=== PATIENT | female | born 1955 | race Caucasian/White ===

== ENCOUNTER 2016-04-18 06:17 | Emergency (ER) | payer BC ==
[2016-04-18] MEDS ORDERED: IPRATROPIUM/ALBUTEROL 3 ML VIAL NEB ONE ×2 (06:23→06:30)
[2016-04-18] MEDS ORDERED: NITROGLYCERIN 0.4 MG 25 EA TAB SL ONE ×2 (06:31→06:35)
--- NOTE | 2016-04-18 06:44 | ED.PDOC ---
History of Present Illness - General Source: patient, RN notes reviewed, Vital Signs reviewed Exam Limitations: no limitations - History of Present Illness Initial Comments: C.H. 60 y/o female with history of copd woke from her sleep early this am with sob and later on sharp chest pains then was brought by family here. Timing/Duration: 1-3 hours Severity: moderate Improving Factors: nothing Worsening Factors: other - hx of copd Associated Symptoms: chest pain <Jayden Schwartz - Last Filed: 04/18/16 06:54> <Omayra Steinberg - Last Filed: 04/18/16 09:34> - General Chief Complaint: Respiratory Problem Stated Complaint: short of breath Time Seen by Provider: 04/18/16 06:42 - History of Present Illness Allergies/Adverse Reactions: Allergies NO KNOWN ALLERGY Allergy (Verified 01/08/13 18:32) Home Medications: Ambulatory Orders Tiotropium [place] Monohydrate [Spiriva Handihaler] 18 mcg IN DAILY #0 Budesonide-Formoterol Fumarate [Symbicort] 1 aer IN BID 12/31/15 Azithromycin Tab [Zithromax] 250 mg PO QDPC #4 tab 04/18/16 Methylprednisolone [Medrol Dose Jose Alberto] 4 mg PO DAILY #1 pack 04/18/16 Ondansetron [Zofran Odt] 4 mg PO Q4HR PRN #20 tab 04/18/16 Review of Systems - Review of Systems Constitutional: States: fever EENTM: States: no symptoms reported Respiratory: States: short of breath Cardiology: States: see HPI, chest pain Gastrointestinal/Abdominal: States: no symptoms reported Genitourinary: States: no symptoms reported Musculoskeletal: States: no symptoms reported Skin: States: no symptoms reported Neurological: States: no symptoms reported Endocrine: States: no symptoms reported Hematologic/Lymphatic: States: no symptoms reported <Jayden Schwartz - Last Filed: 04/18/16 06:54> Past Medical History (General) - Patient Medical History Hx Seizures: No Hx Stroke: No Hx Dementia: No Hx Asthma: No Hx of COPD: Yes Hx Cardiac Disorders: No Hx Congestive Heart Failure: No Hx Pacemaker: No Hx Hypertension: No Hx Thyroid Disease: No Hx Diabetes: No Hx Gastroesophageal Reflux: No Hx Renal Disease: No Hx Cancer: No Hx of HIV: No Hx Hepatitis C: No Hx MRSA: No Surgical History: cholecystectomy - hysterectomy, other - Vaccination History Hx Tetanus, Diphtheria Vaccination: No Hx Influenza Vaccination: No Hx Pneumococcal Vaccination: Yes - Social History Hx Tobacco Use: Yes Hx Alcohol Use: No Hx Substance Use: No Hx Substance Use Treatment: No Hx Depression: No Hx Physical Abuse: No Hx Emotional Abuse: No Hx Suspected Abuse: No - Activities of Daily Living Patient Lives Alone: No - family Grooming Ability: Independent Eating (Feeding) Ability: Independent Toileting Ability: Independent <Jayden Schwartz R - Last Filed: 04/18/16 06:54> Family Medical History - Family History Mother Family History: Unknown Living Status: Still Living Hx Family Hypertension: Yes - mom Hx Family Diabetes: Yes - mom <Jayden Schwartz R - Last Filed: 04/18/16 06:54> Physical Exam - Physical Exam General Appearance: Alert, Anxious, No apparent distress Ears, Nose, Throat: hearing grossly normal, normal ENT inspection, normal pharynx Neck: non-tender, full range of motion, supple Respiratory: chest non-tender, decreased breath sounds, rales Cardiovascular/Chest: normal peripheral pulses, no gallop, no murmur, tachycardia Peripheral Pulses: radial,right: 2+, radial,left: 2+ Gastrointestinal/Abdominal: normal bowel sounds, non tender, soft, no organomegaly Back Exam: normal inspection, no CVA tenderness, no vertebral tenderness Extremity: normal range of motion, non-tender, normal inspection Neurologic: no motor/sensory deficits, alert, normal mood/affect, oriented x 3 Skin Exam: normal color, warm/dry, cyanosis Lymphatic: no adenopathy <Jayden Schwartz R - Last Filed: 04/18/16 06:54> Progress - Progress Progress: 04/18/16 07:10 Patient still appears SOB but her O2 saturation is good. Chest X-ray shows pneumonia so will start Zithromax 500mg IV and give Solumedrol 125mg IV. 04/18/16 08:08 Patient is feeling and breathing better except for some nausea. Will give Zofran IV. 04/18/16 09:30 Patient continues to do well. She is on O2 at home. Will d/c home with antibiotic, steroids and zofran. She is agreeable with the plan. - Results/Orders Results/Orders: Laboratory Tests 04/18/16 04/18/16 04/18/16 06:30 06:44 06:46 WBC 10.4 RBC 4.96 Hgb 13.9 Hct 42.0 MCV 84.7 MCH 28.0 MCHC 33.0 RDW 13.6 Plt Count 126 L MPV 8.0 Absolute Neuts (auto) 8.10 H Absolute Lymphs (auto) 1.60 Absolute Monos (auto) 0.50 Absolute Eos (auto) 0.10 Absolute Basos (auto) 0.10 Neutrophils % 77.5 Lymphocytes % 15.8 L Monocytes % 4.8 Eosinophils % 1.4 Basophils % 0.5 D-Dimer, Quantitative < 230 Sodium 135 Potassium 4.3 Chloride 103 Carbon Dioxide 22 Anion Gap 14.3 BUN 15 Creatinine 0.73 BUN/Creatinine Ratio 20.5 H Random Glucose 129 H Serum Osmolality 272.6 L Calcium 8.8 Total Bilirubin 0.5 AST 28 ALT 20 Alkaline Phosphatase 68 Creatine Kinase 107 CK-MB (CK-2) 2.8 CK-MB (CK-2) % Not Reportable Troponin I < 0.02 B-Natriuretic Peptide 15.6 Serum Total Protein 7.2 Albumin 4.0 Globulin 3.2 Albumin/Globulin Ratio 1.3 - EKG/XRAY/CT XRAY: chest - Multifocal pneumonia per Radiology <Omayra Steinberg - Last Filed: 04/18/16 09:34> Departure <Jayden Schwartz - Last Filed: 04/18/16 06:54> - Departure Time of Disposition: 09:31 Diet: resume usual diet Activity: increase activity as tolerated <Omayra Steinberg - Last Filed: 04/18/16 09:34> - Departure Clinical Impression: Pneumonia, COPD exacerbation Disposition: Discharge to Home or Self Care Condition: Good Departure Forms: ED Discharge - Pt. Copy, Patient Portal Self Enrollment Instructions: DI for Pneumonia -- Adult, DI for Chronic Obstructive Pulmonary Disease Prescriptions: Ondansetron [Zofran Odt] 4 mg PO Q4HR PRN #20 tab PRN Reason: Nausea/Vomiting Methylprednisolone [Medrol Dose Jose Alberto] 4 mg PO DAILY #1 pack Azithromycin Tab [Zithromax] 250 mg PO QDPC #4 tab Home Medications: Ambulatory Orders Tiotropium [place] Monohydrate [Spiriva Handihaler] 18 mcg IN DAILY #0 11/05/ 13 Budesonide-Formoterol Fumarate [Symbicort] 1 aer IN BID 12/31/15 Azithromycin Tab [Zithromax] 250 mg PO QDPC #4 tab 04/18/16 Methylprednisolone [Medrol Dose Jose Alberto] 4 mg PO DAILY #1 pack 04/18/16 Ondansetron [Zofran Odt] 4 mg PO Q4HR PRN #20 tab 04/18/16 Additional Instructions: Continues home neb treatments as needed. Use home O2 as needed
--- NOTE | 2016-04-18 06:52 | RAD ---
EXAM: Single view chest. INDICATION: Chest pain. COMPARISON: Chest x-ray: 10/05/2014. FINDINGS: Cardiac silhouette: Unremarkable. Shawna: Unremarkable. Lobar consolidation: There are patchy airspace opacities within the right lung.Pleural effusion: None.Pneumothorax: None.Other: None. Bones: Unremarkable. Other: None. IMPRESSION: Multifocal pneumonia Electronically signed by: John Rosenthal MD 04/18/2016 6:51 AM ASIAN STUDIES PROFESSOR
[2016-04-18] MEDS ORDERED: AZITHROMYCIN IV 500 MG in SODIUM CHLORIDE 0.9% 250ML 250 ML IVPB ONE (07:05)
[2016-04-18] MEDS ORDERED: methylPREDNISolone SODIUM SUC 125 MG/2 ML VIAL IV ONE (07:09)
[2016-04-18] MEDS ORDERED: SODIUM CHLORIDE 0.9% 250ML 250 ML ONE (07:16)
[2016-04-18] MEDS ORDERED: AZITHROMYCIN IV 500 MG VIAL IVPB ONE (07:16)
[2016-04-18 08:03] VITALS: O2SAT 94
[2016-04-18] MEDS ORDERED: ONDANSETRON INJ 4 MG/2 ML VIAL IV ONE (08:08)
[2016-04-18] MEDS ORDERED: ACETAMINOPHEN 500 MG TAB PO ONE (09:30)
[2016-04-18 09:49] VITALS: BP 108/57; TEMP 99.8
--- NOTE | 2016-05-03 00:05 | RAD ---
EXAM: Single view chest. INDICATION: Chest pain. COMPARISON: Chest x-ray: 10/05/2014. FINDINGS: Cardiac silhouette: Unremarkable. Shawna: Unremarkable. Lobar consolidation: There are patchy airspace opacities within the right lung.Pleural effusion: None.Pneumothorax: None.Other: None. Bones: Unremarkable. Other: None. IMPRESSION: Multifocal pneumonia Electronically signed by: John Rosenthal MD 04/18/2016 6:51 AM MOBILITY MANAGER
== END 2016-04-18 09:49 | disposition home or self-care (01) ==
LOC: ER 06:17
DX: J18.9 Pneumonia, unspecified organism (principal); J44.1 Chronic obstructive pulmonary disease with (acute) exacerbation; Z87.891 Personal history of nicotine dependence; Z99.81 Dependence on supplemental oxygen

== ENCOUNTER → 2017-08-29 | Outpatient (CLI) | payer BC | LOC: GMAB 11:50 | PROVIDERS: ATTEND Family Medicine | DX: Z00.01 Encounter for general adult medical examination with abnormal findings (principal) ==

== ENCOUNTER → 2017-09-13 | Outpatient (CLI) | payer BC ==
--- NOTE | 2017-09-13 16:42 | US ---
EXAM DESCRIPTION: Carotid Duplex CLINICAL HISTORY: CAROTID BRUIT COMPARISON: None Available. TECHNIQUE: Carotid Doppler ultrasound FINDINGS: Right Submitted images show patchy calcified and noncalcified plaque in the common carotid artery with prominent noncalcified plaque in the right carotid bulb and proximal right ICA. Elevated flow velocity in the right ICA is consistent with a 60-79 % stenosis. Cross-sectional images with measurements suggest 41% area stenosis of the proximal right ICA. The following flow velocities were obtained: Common carotid artery peak systolic flow velocity measures 102 centimeters per second. Internal carotid artery peak systolic flow velocity measures 153 centimeters per second. This velocity is elevated consistent with 60-79 % stenosis. External carotid artery peak systolic flow velocity measures 77 centimeters per second. Flow in the right vertebral artery is antegrade. The right internal carotid to common carotid peak systolic flow velocity ratio equals 1.5 which is normal. Left Submitted images show calcified plaque at the left carotid bulb and proximal left internal and external carotid arteries. Transverse images with measurements suggest 32% area stenosis of the left carotid bulb with 30% area stenosis of the proximal left ICA. The following flow velocities were obtained: Common carotid artery peak systolic flow velocity measures 94 centimeters per second. Internal carotid artery peak systolic flow velocity measures 87 centimeters per second. External carotid artery peak systolic flow velocity measures 111 centimeters per second. Flow in the left vertebral artery is antegrade. The left internal carotid to common carotid peak systolic flow velocity ratio of 0.9 is normal. IMPRESSION: Elevated flow velocity in the proximal right ICA consistent with 60-79% stenosis. Electronically signed by: Waldemar Nicholas MD 09/13/2017 4:40 PM CDT
== END ==
LOC: US 13:27
PROVIDERS: ATTEND Family Medicine
DX: I65.23 Occlusion and stenosis of bilateral carotid arteries (principal)

== ENCOUNTER → 2017-09-22 | Outpatient (CLI) | payer OTHER ==
--- NOTE | 2017-09-22 16:24 | CT ---
Procedure: CT LUNG SCREENING Exam Date: 09/22/2017 Ordering Provider: Marcus Pope Clinical Indication: SCREENING Comparison: None Technique: Using a multislice scanner, sequential axial imaging was obtained in the thorax from the level of the thoracic inlet through the lung bases without IV contrast. A low dose protocol was utilized. 2D sagittal and coronal reconstructed images were obtained. This exam was performed according to our departmental dose optimization program which includes use of automated exposure control, adjustment of the mA and/or kV according to patient size and/or use of iterative reconstruction technique. FINDINGS: Lungs and large airways: There are emphysematous changes bilaterally. Central airways are patent. No focal lung consolidation. There are multiple bilateral lung nodules, largest in the left lung is in the left upper lobe and measures 4 mm. Largest in the right lung measures 4 mm in the right lower lobe Pleura: No pleural effusion. No pneumothorax. Mediastinum and radha: Evaluation of hilar lymphadenopathy is limited without IV contrast. No mediastinal lymphadenopathy by CT size criteria. Heart and great vessels: Heart is not enlarged. No pericardial effusion. No aortic aneurysm. Aortic and coronary artery calcifications. Chest wall, lower neck, axillae: Unremarkable Upper abdomen: Prior cholecystectomy. 2.2 cm lipid rich left adrenal adenoma. Bones: Nonacute IMPRESSION: 1. Multiple bilateral, less than 4 mm, lung nodules. Lung RADS category 2, continue annual screening with low-dose CT. 2. Lipid rich left adrenal adenoma. Electronically signed by: Дмитрий Mustafa MD 09/22/2017 4:23 PM CDT
== END ==
LOC: CT 11:00
PROVIDERS: ATTEND Family Medicine
DX: Z87.891 Personal history of nicotine dependence (principal)

== ENCOUNTER 2017-12-26 20:24 | Emergency (ER) | payer BC ==
[2017-12-26] MEDS ORDERED: SODIUM CHLORIDE 0.9% 1000ML 1,000 ML IVS ONE (21:49)
--- NOTE | 2017-12-26 21:50 | ED.PDOC ---
History of Present Illness - General Chief Complaint: GI Problem Stated Complaint: N/V/D Time Seen by Provider: 12/26/17 21:41 Source: patient Exam Limitations: no limitations - History of Present Illness Initial Comments: Darling Weinstein 62y/o female stated that she had watery diarrhea tonight then followed by nausea vomiting unable to eat since she she threw up right away. Timing/Duration: 4-6 hours Severity: moderate Improving Factors: nothing Worsening Factors: eating Associated Symptoms: other - see hpi Allergies/Adverse Reactions: Allergies NO KNOWN ALLERGY Allergy (Verified 01/08/13 18:32) Home Medications: Ambulatory Orders Budesonide-Formoterol Fumarate [Symbicort] 1 aer IN BID 12/31/15 Albuterol Inhaler [Ventolin Hfa Inhaler] 1 puff INH PRN 12/26/17 Review of Systems - Review of Systems Constitutional: States: no symptoms reported EENTM: States: no symptoms reported Respiratory: States: no symptoms reported Cardiology: States: no symptoms reported Gastrointestinal/Abdominal: States: see HPI Genitourinary: States: no symptoms reported Musculoskeletal: States: no symptoms reported Skin: States: no symptoms reported Neurological: States: no symptoms reported Past Medical History (General) - Patient Medical History Hx Seizures: No Hx Stroke: No Hx Dementia: No Hx Asthma: No Hx of COPD: Yes Hx Cardiac Disorders: No Hx Congestive Heart Failure: No Hx Pacemaker: No Hx Hypertension: No Hx Thyroid Disease: No Hx Diabetes: No Hx Gastroesophageal Reflux: No Hx Renal Disease: No Hx Cancer: No Hx of HIV: No Hx Hepatitis C: No Hx MRSA: No Surgical History: cholecystectomy, other - hysterectomy - Vaccination History Hx Tetanus, Diphtheria Vaccination: No Hx Influenza Vaccination: No Hx Pneumococcal Vaccination: Yes Immunizations Up to Date: No - Social History Hx Tobacco Use: Yes - vape Hx Alcohol Use: No Hx Substance Use: No Hx Substance Use Treatment: No Hx Depression: No Hx Physical Abuse: No Hx Emotional Abuse: No Hx Suspected Abuse: No - Female History Patient is a Female of Child Bearing Age (10 -59 yrs old): No - Triage Comment ED Triage Comment: N'V'D after arrival to ER Family Medical History - Family History Mother Family History: Unknown Living Status: Still Living Hx Family Hypertension: Yes - multiple family members Hx Family Diabetes: Yes - multiple family members Physical Exam - Physical Exam General Appearance: Alert, Comfortable, No apparent distress Eye Exam: bilateral normal Ears, Nose, Throat: hearing grossly normal, normal ENT inspection, normal pharynx Neck: non-tender, full range of motion, supple, normal inspection Respiratory: chest non-tender, decreased breath sounds Cardiovascular/Chest: normal peripheral pulses, regular rate, rhythm, no murmur Peripheral Pulses: radial,right: 2+, radial,left: 2+ Gastrointestinal/Abdominal: normal bowel sounds, non tender, soft, no organomegaly Back Exam: no CVA tenderness, no vertebral tenderness Extremity: non-tender, no pedal edema, no calf tenderness Neurologic: alert, oriented x 3 Skin Exam: normal color, warm/dry Lymphatic: no adenopathy Progress - Progress Progress: 12/26/17 22:22 Vital Signs - 8 hr 12/26/17 21:03 Temperature 99.3 F Pulse Rate [ 102 H Right] Respiratory 20 Rate Blood Pressure 126/73 [Left Arm] O2 Sat by Pulse 94 L Oximetry 12/27/17 00:17 no nausea /vomiting but occasional watery stool - Results/Orders Results/Orders: Laboratory Results - last 24 hr 12/26/17 12/26/17 12/26/17 22:01 22:01 22:01 WBC 6.9 RBC 5.13 Hgb 14.5 Hct 43.2 MCV 84.3 MCH 28.2 MCHC 33.5 RDW 13.8 Plt Count 155 MPV 7.6 Absolute Neuts (auto) 5.30 Absolute Lymphs (auto) 1.20 Absolute Monos (auto) 0.40 Absolute Eos (auto) 0.10 Absolute Basos (auto) 0.00 Neutrophils % 75.8 Lymphocytes % 17.3 L Monocytes % 5.1 Eosinophils % 1.4 Basophils % 0.4 Sodium 137 Potassium 3.6 Chloride 105 Carbon Dioxide 24 Anion Gap 11.6 L BUN 18 Creatinine 0.63 BUN/Creatinine Ratio 28.6 H Random Glucose 107 H Serum Osmolality 276.2 Lactic Acid 0.9 Calcium 9.4 Total Bilirubin 0.7 AST 16 ALT 21 Alkaline Phosphatase 60 Serum Total Protein 7.9 Albumin 4.3 Globulin 3.6 H Albumin/Globulin Ratio 1.2 Lipase 34 Urine Color Urine Appearance Urine pH Ur Specific [place] Urine Protein Urine Glucose (UA) Urine Ketones Urine Blood Urine Nitrite Urine Bilirubin Urine Urobilinogen Ur Leukocyte Esterase Urine RBC Urine WBC Ur Epithelial Cells Amorphous Sediment Urine Bacteria Urine Mucus 12/26/17 22:45 WBC RBC Hgb Hct MCV MCH MCHC RDW Plt Count MPV Absolute Neuts (auto) Absolute Lymphs (auto) Absolute Monos (auto) Absolute Eos (auto) Absolute Basos (auto) Neutrophils % Lymphocytes % Monocytes % Eosinophils % Basophils % Sodium Potassium Chloride Carbon Dioxide Anion Gap BUN Creatinine BUN/Creatinine Ratio Random Glucose Serum Osmolality Lactic Acid Calcium Total Bilirubin AST ALT Alkaline Phosphatase Serum Total Protein Albumin Globulin Albumin/Globulin Ratio Lipase Urine Color Yellow Urine Appearance Clear Urine pH 5.5 Ur Specific [place] 1.025 Urine Protein Negative Urine Glucose (UA) Negative Urine Ketones Trace Urine Blood Trace-intact H Urine Nitrite Negative Urine Bilirubin Negative Urine Urobilinogen 0.2 Ur Leukocyte Esterase Small H Urine RBC 3-5 H Urine WBC 3-5 H Ur Epithelial Cells 3-5 Amorphous Sediment 3+ Urine Bacteria 2+ H Urine Mucus Moderate clostridiium difficile-negative;Discuss all test result findings with patient - EKG/XRAY/CT XRAY: chest - no acute findings Departure - Departure Clinical Impression: Nausea vomiting and diarrhea Time of Disposition: 00:16 Disposition: Discharge to Home or Self Care Condition: Fair Departure Forms: ED Discharge - Pt. Copy, Patient Portal Self Enrollment Instructions: Viral Gastroenteritis, Adult (DC) Diet: bland diet, other - BRAT diet-banana,toast bread, crackers,dawna codi, ice tea;pedialyte Referrals: Ambrosio Ang MD [Primary Care Provider] - 1-2 Weeks Home Medications: Ambulatory Orders Budesonide-Formoterol Fumarate [Symbicort] 1 aer IN BID 12/31/15 Albuterol Inhaler [Ventolin Hfa Inhaler] 1 puff INH PRN 12/26/17 Additional Instructions: Return to ER as needed;Continue with home medications
[2017-12-26] MEDS ORDERED: ONDANSETRON INJ 4 MG/2 ML VIAL IV ONE (22:20)
--- NOTE | 2017-12-26 22:42 | RAD ---
EXAM DESCRIPTION: Chest,1 View CLINICAL HISTORY: 62 years Female, light headed COMPARISON: Chest x-ray April 18, 2016 FINDINGS: No consolidation. No pneumothorax. No significant pleural effusion. Cardiac silhouette appears normal in size. Aortic atherosclerosis is present. Osseous structures are unremarkable. IMPRESSION: No acute findings. Electronically signed by: José Miguel Leroy MD 12/26/2017 10:41 PM CDT
[2017-12-27] MEDS ORDERED: PROMETHAZINE TAB (ER DISP) 25 MG TAB PO ONE (00:22)
[2017-12-27 00:54] VITALS: BP 130/74; TEMP 98.2; O2SAT 95
== END 2017-12-27 00:54 | disposition home or self-care (01) ==
LOC: ER 20:24
DX: R11.2 Nausea with vomiting, unspecified (principal); R19.7 Diarrhea, unspecified; J44.9 Chronic obstructive pulmonary disease, unspecified; Z87.891 Personal history of nicotine dependence
CPT/HCPCS: 36415; 71045; 80053; 81001; 83605; 83690; 85025; 87324; 87449; J2405; J7030; Q0169

== ENCOUNTER → 2018-02-17 | Outpatient (CLI) | payer BC ==
--- NOTE | 2018-02-17 14:28 | CT ---
EXAM DESCRIPTION: Abdomen w/wo Contrast: Computed Tomography. CLINICAL HISTORY: DISORDER OF ADRENAL GLANDS. E27.9 COMPARISON: Low-dose CT scan for lung cancer screening 09/22/2017. TECHNIQUE: Spiral-axial scans at 5 x 5 mm intervals, from the diaphragms through the upper pelvis, before and after nonionic IV contrast. (Portal venous phase) No oral contrast. Coronal and sagittal 2.0 mm reconstructions, post IV contrast. No delayed scans were performed. No adverse reactions. DLP 937.43 mGy-cm. This exam was performed according to our departmental CT dose-optimization program which includes automated exposure control, adjustment of the mA and/or kV according to patient size and/or use of iterative reconstruction technique; to reduce radiation dose to as low as reasonably achievable (ALARA). FINDINGS: Lung bases and pleura: Bilateral emphysematous type blebs in a centrilobular pattern. Bilateral nodules solid and groundglass less than 4 mm diameter. Liver, stomach, adrenal glands, and spleen: Left adrenal gland mass measures 2.2 x 1.6 cm in the axial plane and 2.2 cm in the coronal plane. Homogeneous appearance noncontrast with well-defined capsule. No calcifications. Normal surrounding fatty density. Minimal heterogeneous enhancement. Precontrast density - right adrenal gland is unremarkable. -9.5HU. Postcontrast density +59HU. Stomach, spleen, and liver are unremarkable. . Pancreas/Gallbladder/Ducts: Surgical clips in the gallbladder fossa with no fluid. Normal caliber of the common bile duct. Pancreas is negative Kidneys and Ureters: Unremarkable. Mesentery: No free fluid or free air in the included peritoneal cavity. No fatty stranding or fascial thickening. Aorta: Extensive atherosclerotic occlusive disease in the mid and distal abdominal aorta with narrowing of the lumen extending into the bilateral common iliac arteries. Small Bowel: Negative. Terminal Ileum/Cecum: Normal caliber. Appendix not seen. Normal density of the surrounding fat. Colon: Diffuse fecal material from the cecum to the rectum. No distention. Multiple diverticula sigmoid colon with no evidence of complications. Spine: No significant degenerative changes. Pelvic soft tissues: Vaginal cuff unremarkable. No free fluid. Abdominal Wall/Back Soft Tissues: Minimal diastases of the umbilicus but no hernia. IMPRESSION: 1. 2.2 cm left adrenal mass with noncontrast Hounsfield density -9 consistent with a lipid rich adenoma. No further imaging is recommended according to [facility] Best Practice guidelines. 2. Extensive atherosclerosis of the mid and distal abdominal aorta extending into the bilateral iliac arteries. If patient demonstrates clinical findings of claudication or lower extremity peripheral vascular disease, consider CTA abdominal aorta and lower extremity runoff. 3. Diverticulosis distal colon with no evidence of complications. Electronically signed by: Collin Ni MD 02/17/2018 2:27 PM ELECTRONIC PUBLISHER
== END ==
LOC: CT 08:31
PROVIDERS: ATTEND Family Medicine
DX: E27.9 Disorder of adrenal gland, unspecified (principal); I70.0 Atherosclerosis of aorta; K57.30 Diverticulosis of large intestine without perforation or abscess without bleeding

== ENCOUNTER → 2018-10-31 | Outpatient (CLI) | payer OTHER ==
--- NOTE | 2018-10-31 19:00 | CT ---
Procedure: CT LUNG SCREENING Exam Date: 10/31/2018. Ordering Provider: Marcus Pope Clinical Indication: PERSONAL HX OF TOBACCO USE OR NICOTINE DEPENDENCE . Cigarette smoking cessation 6 years ago. 60 pack years. This patient meets eligibility criteria for low-dose CT lung cancer screening. Comparison: Low-dose CT lung cancer screening examination 09/22/2017. Technique: Using a multislice scanner, sequential helical axial imaging was obtained in the thorax, 2.5 mm thickness, 2.5 mm separation, from the level of the thoracic inlet through the lung bases without IV contrast. A low dose protocol was utilized for BMI greater than 30: BMI: 28.1. CTDI: 1.76 mGy. 120. kVp. 45 mA. DLP 57.43 mGy-centimeters. 2D sagittal and coronal reconstructed images, 6.0 mm thickness, were obtained. This exam was performed according to our departmental dose optimization program which includes use of automated exposure control, adjustment of the mA and/or kV according to patient size and/or use of iterative reconstruction technique. Nodule measurements under 10 mm are given as mean value of 3 axes diameters. FINDINGS: Lungs and large airways: Dilated airspaces in blebs in a bulla bilaterally decreasing in size and number from the upper lung nichols than lower lung nichols. Bilateral mosaic density in the lungs. Stable bilateral right major fissure Ania-Fissural nodule on image 2/58. Stable 4 mm solid nodule left upper lobe anteriorly on image 2/34. Multiple nodules less than 4 mm in diameter bilateral upper lobes and also in the right lower lobe. Semisolid and some are groundglass. Possible smaller nodules in the subpleural left lower lobe. No new abnormal nodules or masses. No focal infiltrates. Pleura and space: Bilateral focal and confluent pleural thickening with no effusion or pneumothorax. Mediastinum and radha: evaluation limited by low dose technique and lack of IV contrast. Stable mediastinal and hilar nodes. No dominant mass or new enlarging node. Heart and great vessels: Atherosclerotic calcification of the brachiocephalic vessels, aortic arch, and main, circumflex, and LAD coronary arteries. Chest wall, lower neck, axillae: Evaluation also limited by same factors as described above. Negative. Upper abdomen: Evaluation limited by low-dose technique. Stable 2.2 cm left adrenal adenoma. No free air or free fluid in the included peritoneal space. Surgical clips gallbladder fossa. Osseous structures: Evaluation limited by low dose MIP technique. Minimal arthrosis left glenohumeral joint. No lytic or blastic lesions. IMPRESSION: 1. Moderate COPD and emphysematous changes more prevalent in the upper lobes than the lower lobes. No new nodules or abnormal nodules, no focal masses. No focal infiltrates. [facility] Best Practice recommendations:. Please see below for Lung RADS category and FOLLOW-UP.* *Lung RADS category CATEGORY 2- Nodules with a very low likelihood (less than 1%) of becoming a clinically active cancer due to size or lack of growth. Nodules: Perifissural nodule(s) < 10 mm. (526mm3). Solid or part solid nodule(s) less than 6mm (113.1 mm3), new solid nodule less than 4mm (33.5 mm3). Ground glass nodule(s) less than 30mm (47683.2 mm3) or unchanged or slow growing ground glass nodule 30mm or greater. Cat 3 or 4 nodule unchanged for 3 or more months. FOLLOW-UP: Continue annual screening with a Low Dose Chest CT in 12 months for re-evaluation. Electronically signed by: Collin Ni MD 10/31/2018 6:58 PM CDT
== END ==
LOC: CT 10:00
PROVIDERS: ATTEND Family Medicine
DX: Z87.891 Personal history of nicotine dependence (principal); J44.9 Chronic obstructive pulmonary disease, unspecified

== ENCOUNTER 2019-05-28 11:50 | Emergency (ER) | payer SELFPAY ==
[2019-05-28] MEDS ORDERED: IPRATROPIUM/ALBUTEROL 3 ML VIAL NEB ONE (12:05)
[2019-05-28 12:11] VITALS: TEMP 98.5
--- NOTE | 2019-05-28 12:25 | RAD ---
EXAM DESCRIPTION: Chest,1 View CLINICAL HISTORY: sob 2 days COMPARISON: April 21, 2019 IMPRESSION: Single AP portable upright view of the chest shows cardiac silhouette and pulmonary vasculature to be within normal limits. Lungs are normally aerated. Mild increased interstitial changes throughout the lungs are unchanged from previous exam. No focal consolidation is identified. No obvious pleural effusion or pneumothorax is seen. Electronically signed by: Josias Marte MD 05/28/2019 12:24 PM CDT
--- NOTE | 2019-05-28 12:59 | ED.PDOC ---
History of Present Illness - General Chief Complaint: Respiratory Problem Stated Complaint: SOB, lightheaded Time Seen by Provider: 05/28/19 12:04 Source: patient Exam Limitations: no limitations - History of Present Illness Initial Comments: The patient is a 63-year-old female presented emergency room secondary to progressive shortness of breath over the last couple of days. No fevers chills nausea vomiting or diarrhea. Mild dizziness but no syncope. No chest pain. No palpitations. No rash. She is not hypoxic. She does have significant history of COPD and asthma. The patient has been doing intermittent albuterol nebulizer treatments. Timing/Duration: other - 2 days Severity: moderate Improving Factors: nothing Worsening Factors: nothing Associated Symptoms: denies symptoms Allergies/Adverse Reactions: Allergies NO KNOWN ALLERGY Allergy (Verified 05/28/19 12:12) Home Medications: Ambulatory Orders Citalopram Hydrobromide [Celexa] 20 mg PO DAILY 04/18/19 Pnelqpscjdt-Rnapyfajujhh-Aqzjh [Trelegy Ellipta 100-62.5-25 Mcg/INH] 1 aer INH DAILY 04/18/19 Albuterol Sulfate Nebs [Proventil Nebs] 2.5 mg NEB Q4H PRN #30 vial 04/21/19 Cefdinir [Omnicef] 300 mg PO BID #14 cap 04/21/19 guaiFENesin ER TAB [Mucinex Tab] 1,200 mg PO BID #28 tab 04/21/19 levoFLOXacin [Levaquin] 500 mg PO DAILY #3 tab 05/28/19 predniSONE [Prednisone] 20 mg PO DAILY #5 tab 05/28/19 Review of Systems - Review of Systems Constitutional: States: no symptoms reported EENTM: States: no symptoms reported Respiratory: States: see HPI Cardiology: States: no symptoms reported Gastrointestinal/Abdominal: States: no symptoms reported Genitourinary: States: no symptoms reported Musculoskeletal: States: no symptoms reported Skin: States: no symptoms reported Neurological: States: no symptoms reported Endocrine: States: no symptoms reported Hematologic/Lymphatic: States: no symptoms reported All other Systems: No Change from Baseline Past Medical History (General) - Patient Medical History Hx Seizures: No Hx Stroke: No Hx Dementia: No Hx Asthma: No Hx of COPD: Yes Hx Cardiac Disorders: No Hx Congestive Heart Failure: No Hx Pacemaker: No Hx Hypertension: No Hx Thyroid Disease: No Hx Diabetes: No Hx Gastroesophageal Reflux: No Hx Renal Disease: No Hx Cancer: No Hx of HIV: No Hx Hepatitis C: No Hx MRSA: No Surgical History: Hysterectomy - Vaccination History Hx Tetanus, Diphtheria Vaccination: No Hx Influenza Vaccination: No Hx Pneumococcal Vaccination: Yes - Social History Hx Tobacco Use: Yes - vape Hx Alcohol Use: No Hx Substance Use: No Hx Substance Use Treatment: No Hx Depression: No Hx Physical Abuse: No Hx Emotional Abuse: No Hx Suspected Abuse: No - Activities of Daily Living Hospice Agency (if applicable):: None - Female History Patient is a Female of Child Bearing Age (10 -59 yrs old): No Patient : No - Triage Comment ED Triage Comment: SOB, lightheaded since waking up this morning. Family Medical History - Family History Mother Family History: Unknown Living Status: Still Living Hx Family Hypertension: Yes - multiple family members Hx Family Diabetes: Yes - multiple family members Physical Exam - Physical Exam General Appearance: Alert, Comfortable, No apparent distress Eye Exam: bilateral normal Ears, Nose, Throat: hearing grossly normal, normal ENT inspection Neck: full range of motion, supple Respiratory: respiratory distress - Mild, decreased breath sounds - Mild, accessory muscle use - Mild, wheezing Cardiovascular/Chest: normal peripheral pulses, regular rate, rhythm, no edema Peripheral Pulses: radial,right: 2+, radial,left: 2+ Gastrointestinal/Abdominal: non tender, soft Rectal Exam: deferred Back Exam: no CVA tenderness, no vertebral tenderness Extremity: non-tender, normal inspection, no pedal edema, normal capillary refill 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 No evidence of any focal pneumonia on the chest x- ray. She is to increase her albuterol nebulizer treatments 1 every 4 hours for the next 2 to 3 days. She will additionally be written for 3 days of oral prednisone as well as 3 days of oral Levaquin as a broad-spectrum antibiotic in case she is trying to develop an early pneumonia. ER warnings were given. The patient does need to stay away from other people particularly at this time to avoid acquiring a more significant infection. Obviously she needs to not smoke. merry [email or web address] [phone] - Results/Orders Results/Orders: Rapid flu is negative. Chest x-ray shows no focal infiltrates. No acute changes. Rapid flu is negative. EKG shows normal sinus rhythm at 88 bpm with a mild right axis deviation. Borderline R wave progression. Mild left atrial dilation. Chronic nonspecific ST segment T wave changes in anterior leads. No definitive ST segment elevation or depression. Normal QT interval. Departure - Departure Clinical Impression: Acute exacerbation of COPD with asthma Disposition: Discharge to Home or Self Care Condition: Fair Departure Forms: ED Discharge - Pt. Copy, Patient Portal Self Enrollment Instructions: DI for Asthma -- Adult Diet: regular diet Activity: increase activity as tolerated Referrals: SHAWNA GARCIA MD [Primary Care Provider] - 1-2 Weeks Prescriptions: levoFLOXacin [Levaquin] 500 mg PO DAILY #3 tab predniSONE [Prednisone] 20 mg PO DAILY #5 tab Home Medications: Ambulatory Orders Citalopram Hydrobromide [Celexa] 20 mg PO DAILY 04/18/19 Gaykjmzcajx-Ezcczypmafeh-Tglvs [Trelegy Ellipta 100-62.5-25 Mcg/INH] 1 aer INH DAILY 04/18/19 Albuterol Sulfate Nebs [Proventil Nebs] 2.5 mg NEB Q4H PRN #30 vial 04/21/19 Cefdinir [Omnicef] 300 mg PO BID #14 cap 04/21/19 guaiFENesin ER TAB [Mucinex Tab] 1,200 mg PO BID #28 tab 04/21/19 levoFLOXacin [Levaquin] 500 mg PO DAILY #3 tab 05/28/19 predniSONE [Prednisone] 20 mg PO DAILY #5 tab 05/28/19 Additional Instructions: The patient is a 63-year-old female presenting with what appears to be a mild COPD exacerbation. No evidence of any focal pneumonia on the chest x- ray. She is to increase her albuterol nebulizer treatments 1 every 4 hours for the next 2 to 3 days. She will additionally be written for 3 days of oral prednisone as well as 3 days of oral Levaquin as a broad-spectrum antibiotic in case she is trying to develop an early pneumonia. ER warnings were given. The patient does need to stay away from other people particularly at this time to avoid acquiring a more significant infection. Obviously she needs to not smoke.
[2019-05-28 13:17] VITALS: BP 103/57; O2SAT 91
== END 2019-05-28 13:17 | disposition home or self-care (01) ==
LOC: ER 11:50
DX: J44.1 Chronic obstructive pulmonary disease with (acute) exacerbation (principal); R42 Dizziness and giddiness; Z87.891 Personal history of nicotine dependence; Z79.899 Other long term (current) drug therapy
CPT/HCPCS: 71045; 87502; 93005; 94640; J7620

== ENCOUNTER 2020-03-03 14:21 | Emergency (ER) | payer SELFPAY ==
[2020-03-03] MEDS ORDERED: IPRATROPIUM/ALBUTEROL 3 ML VIAL NEB ONE (14:41)
[2020-03-03 15:04] VITALS: TEMP 99.7
--- NOTE | 2020-03-03 15:47 | RAD ---
EXAM DESCRIPTION: Chest,1 View CLINICAL HISTORY: 64 years Female, sob COMPARISON: May 28, 2019 TECHNIQUE: AP portable chest. FINDINGS: Left lung is essentially clear with slightly coarsened interstitial markings. The right lung demonstrates patchy incompletely consolidating infiltrate in the lower one third of the lung field. Right cardiac border is slightly indistinct and this may very well represent a right middle lobe infiltrate. Acute inflammatory changes suspected. The upper lung nichols remain clear on the right. Heart size and vascularity appear normal for AP technique and degree of inspiration. No gross bony, hilar, or mediastinal abnormalities are noted. IMPRESSION: Abnormal right lung base consistent with patchy incompletely consolidating acute inflammatory process, most likely pneumonitis. Otherwise negative chest one view. Electronically signed by: Anthony Schulz MD 03/03/2020 3:46 PM [facility]
[2020-03-03] MEDS ORDERED: predniSONE 20 MG TAB PO ONE (16:02)
[2020-03-03] MEDS ORDERED: AMOXICILLIN & POT CLAVULANATE 875 MG TAB PO ONE (16:02)
[2020-03-03] MEDS ORDERED: LEVALBUTEROL NEBS 1.25 MG/3 ML VIAL NEB ONE (16:05)
--- NOTE | 2020-03-03 16:09 | ED.PDOC ---
History of Present Illness - General Chief Complaint: Respiratory Problem Stated Complaint: difficulty breathing, body aches Time Seen by Provider: 03/03/20 14:35 Source: patient Exam Limitations: no limitations - History of Present Illness Initial Comments: The patient is a 64-year-old female presented emergency room secondary to shortness of breath and low-grade fevers for the last couple of days. The patient was seen in her primary care doctor's office this afternoon and had a respiratory panel done which was negative. Mildly productive cough. The patient does have oxygen at home and has been wearing it for the last few days. She does saturate at around 93 to 94% with 2 L. The patient reports she is out of any nebulizer medication. She does not have any antibiotics or steroids at home. Timing/Duration: other - 48 hours Severity: moderate Improving Factors: nothing Worsening Factors: nothing Associated Symptoms: cough, malaise, shortness of breath Allergies/Adverse Reactions: Allergies NO KNOWN ALLERGY Allergy (Verified 03/03/20 15:04) Home Medications: Ambulatory Orders Citalopram Hydrobromide [Celexa] 20 mg PO DAILY 04/18/19 Hjgwjahnlae-Diixksxppjgn-Qogvy [Trelegy Ellipta 100-62.5-25 Mcg/INH] 1 aer INH DAILY 04/18/19 Albuterol Sulfate Nebs [Proventil Nebs] 2.5 mg NEB Q4H PRN #30 vial 04/21/19 Cefdinir [Omnicef] 300 mg PO BID #14 cap 04/21/19 guaiFENesin ER TAB [Mucinex Tab] 1,200 mg PO BID #28 tab 04/21/19 levoFLOXacin [Levaquin] 500 mg PO DAILY #3 tab 05/28/19 predniSONE [Prednisone] 20 mg PO DAILY #5 tab 05/28/19 Review of Systems - Review of Systems Constitutional: States: malaise EENTM: States: no symptoms reported Respiratory: States: cough, short of breath Cardiology: States: no symptoms reported Gastrointestinal/Abdominal: States: no symptoms reported Genitourinary: States: no symptoms reported Musculoskeletal: States: no symptoms reported Skin: States: no symptoms reported Neurological: States: no symptoms reported Endocrine: States: no symptoms reported All other Systems: No Change from Baseline Past Medical History (General) - Patient Medical History Hx Seizures: No Hx Stroke: No Hx Dementia: No Hx Asthma: No Hx of COPD: Yes Hx Cardiac Disorders: No Hx Congestive Heart Failure: No Hx Pacemaker: No Hx Hypertension: No Hx Thyroid Disease: No Hx Diabetes: No Hx Gastroesophageal Reflux: No Hx Renal Disease: No Hx Cancer: No Hx of HIV: No Hx Hepatitis C: No Hx MRSA: No Surgical History: cholecystectomy, Hysterectomy - Vaccination History Hx Tetanus, Diphtheria Vaccination: No Hx Influenza Vaccination: No Hx Pneumococcal Vaccination: Yes - Social History Hx Tobacco Use: Yes - vape Hx Alcohol Use: No Hx Substance Use: No Hx Substance Use Treatment: No Hx Depression: No Hx Physical Abuse: No Hx Emotional Abuse: No Hx Suspected Abuse: No - Activities of Daily Living Hospice Agency (if applicable):: None - Female History Patient is a Female of Child Bearing Age (10 -59 yrs old): No Patient : No Family Medical History - Family History Mother Family History: Unknown Living Status: Still Living Hx Family Hypertension: Yes - multiple family members Hx Family Diabetes: Yes - multiple family members Physical Exam - Physical Exam General Appearance: Alert, No apparent distress Eye Exam: bilateral normal Ears, Nose, Throat: hearing grossly normal, normal ENT inspection Neck: full range of motion, supple Respiratory: decreased breath sounds, accessory muscle use, rhonchi, wheezing Cardiovascular/Chest: normal peripheral pulses, regular rate, rhythm, no edema Peripheral Pulses: radial,right: 2+, radial,left: 2+ Gastrointestinal/Abdominal: non tender, soft Rectal Exam: deferred Back Exam: no CVA tenderness, no vertebral tenderness Extremity: non-tender, normal inspection, no pedal edema, normal capillary refill 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 The patient is being started on Augmentin and will be on that for 10 days. She will also be written for prednisone to take 40 mg daily for the next week. She needs to take this in the mornings. She is also going to be written for DuoNeb treatments to do every 4 hours as needed for the shortness of breath. I do want her to follow back up with her primary care doctor before the weekend. She does need to keep her oxygen on at 2 L at home throughout the day. ER warnings are given for any significant worsening. merry [email or web address] - Results/Orders Results/Orders: Chest x-ray shows a right lower lobe infiltrate. EKG shows normal sinus rhythm 89 bpm normal axis. Normal R wave progression. Mild left atrial dilation. Normal QT interval. No ST segment or T wave changes indicative of acute ischemia. Laboratory Tests 03/03/20 03/03/20 03/03/20 15:10 15:10 15:10 WBC 8.9 RBC 4.31 Hgb 12.1 Hct 36.2 MCV 83.9 MCH 28.1 MCHC 33.5 RDW 14.5 Plt Count 105 L MPV 7.4 Absolute Neuts (auto) 6.90 H Absolute Lymphs (auto) 1.20 Absolute Monos (auto) 0.60 Absolute Eos (auto) 0.20 Absolute Basos (auto) 0.10 Neutrophils % 77.3 Lymphocytes % 13.2 L Monocytes % 6.8 Eosinophils % 2.1 Basophils % 0.6 PT 10.3 INR 1.04 PTT (SP) 29.4 Fibrinogen 461 H D-Dimer, Quantitative 249.0 Sodium 134 L Potassium 3.5 L Chloride 100 L Carbon Dioxide 23 Anion Gap 14.5 BUN 14 Creatinine 0.63 BUN/Creatinine Ratio 22.2 H Random Glucose 162 H Serum Osmolality 272.2 L Lactic Acid Calcium 8.4 Magnesium 1.9 Total Bilirubin 0.8 AST 19 ALT 25 Alkaline Phosphatase 46 LD Total 133 Creatine Kinase 40 CK-MB (CK-2) 1.5 CK-MB (CK-2) % Not Reportable Troponin I < 0.02 C-Reactive Protein 17.9 H* B-Natriuretic Peptide < 15.0 Serum Total Protein 7.3 Albumin 3.8 Globulin 3.5 Albumin/Globulin Ratio 1.1 TSH 0.65 03/03/20 15:10 WBC RBC Hgb Hct MCV MCH MCHC RDW Plt Count MPV Absolute Neuts (auto) Absolute Lymphs (auto) Absolute Monos (auto) Absolute Eos (auto) Absolute Basos (auto) Neutrophils % Lymphocytes % Monocytes % Eosinophils % Basophils % PT INR PTT (SP) Fibrinogen D-Dimer, Quantitative Sodium Potassium Chloride Carbon Dioxide Anion Gap BUN Creatinine BUN/Creatinine Ratio Random Glucose Serum Osmolality Lactic Acid 0.8 Calcium Magnesium Total Bilirubin AST ALT Alkaline Phosphatase LD Total Creatine Kinase CK-MB (CK-2) CK-MB (CK-2) % Troponin I C-Reactive Protein B-Natriuretic Peptide Serum Total Protein Albumin Globulin Albumin/Globulin Ratio TSH Departure - Departure Clinical Impression: COPD with acute exacerbation Right lower lobe pneumonia Qualifiers: Pneumonia type: due to unspecified organism Qualified Code(s): J18.9 - Pneumonia, unspecified organism Disposition: Discharge to Home or Self Care Condition: Fair Departure Forms: ED Discharge - Pt. Copy, Patient Portal Self Enrollment Instructions: Exacerbation of COPD (DC) Diet: regular diet Activity: increase activity as tolerated Referrals: SHAWNA GARCIA MD [Primary Care Provider] - 1-2 Weeks Home Medications: Ambulatory Orders Citalopram Hydrobromide [Celexa] 20 mg PO DAILY 04/18/19 Aljyuvkntlm-Gbggyhlouxuy-Iwywf [Trelegy Ellipta 100-62.5-25 Mcg/INH] 1 aer INH DAILY 04/18/19 Albuterol Sulfate Nebs [Proventil Nebs] 2.5 mg NEB Q4H PRN #30 vial 04/21/19 Cefdinir [Omnicef] 300 mg PO BID #14 cap 04/21/19 guaiFENesin ER TAB [Mucinex Tab] 1,200 mg PO BID #28 tab 04/21/19 levoFLOXacin [Levaquin] 500 mg PO DAILY #3 tab 05/28/19 predniSONE [Prednisone] 20 mg PO DAILY #5 tab 05/28/19 Additional Instructions: The patient is a 64-year-old female presented to the emergency room secondary to a COPD exacerbation and a right lower lobe pneumonia. The patient is being started on Augmentin and will be on that for 10 days. She will also be written for prednisone to take 40 mg daily for the next week. She needs to take this in the mornings. She is also going to be written for DuoNeb treatments to do every 4 hours as needed for the shortness of breath. I do want her to follow back up with her primary care doctor before the weekend. She does need to keep her oxygen on at 2 L at home throughout the day. ER warnings are given for any significant worsening.
[2020-03-03 16:32] VITALS: BP 157/92; O2SAT 96
== END 2020-03-03 16:25 | disposition home or self-care (01) ==
LOC: ER 14:21
DX: J44.1 Chronic obstructive pulmonary disease with (acute) exacerbation (principal); J18.9 Pneumonia, unspecified organism; Z87.891 Personal history of nicotine dependence; Z99.81 Dependence on supplemental oxygen; Z79.899 Other long term (current) drug therapy
CPT/HCPCS: 36415; 71045; 80053; 82550; 82553; 83605; 83615; 83735; 83880; 84443; 84484; 85025; 85379; 85384; 85610; 85730; 86140; 87040; 93005; 94640; J7512; J7614; J7620